=== PATIENT | male | born 1935 | race Caucasian/White ===

== ENCOUNTER → 2021-05-18 | Outpatient (CLI) | payer OTHER, BC | LOC: RAD 13:37 | PROVIDERS: ATTEND Internal Medicine | DX: R06.00 Dyspnea, unspecified (principal); M85.88 Other specified disorders of bone density and structure, other site ==

== ENCOUNTER → 2021-08-02 | Outpatient (CLI) | payer OTHER, BC ==
[~2021-08-02] VITALS: Ht 177.8 cm; Wt 64.0 kg
[~2021-08-02] MED LIST: CARDIZEM CD 18180 M3 PO; DIGOX125 MCG PO; GARLIC OIL1000 MG PO; IRON325 M1 PO; LASIX 40 MG TAB40 MG PO; LIPITOR40 MG PO; LO-DOSE ASPIRIN81 M1 PO; MIRALAX17 G1 PO; OMEGA 3 1,0001 EACH PO; OXYBUTYNIN CHLO10 MG PO; PROAIR HFA8.5 GM INH; TOPROL XL25 MG PO; TRELEGY ELLIPT1 EACH PO; VENTOLIN HFA INH8 GM PO; XARELTO20 MG PO
[2021-08-02 10:26] VITALS: BP 127/67
[2021-08-02 13:52] LABS: HEMOGLOBIN 11.3 gm/dL (14.0-18.0); MCH 30.2 pg (26.0-34.0); MCHC 33.3 g/dL (28.0-37.0); MCV 90.5 fL (80.0-100.0); RBC 3.76 mil/uL (4.50-6.00); RDW 14.5 % (10.5-14.5); WBC 4.7 thou/uL (4.0-11.0)
[2021-08-02 14:02] LABS: CALCIUM 9.7 mg/dL (8.5-10.1); CREATININE 1.1 mg/dL (0.7-1.3)
--- NOTE | 2021-08-02 14:29 | NUR ---
ATTEMPTED THE MEDIASTINAL MASS BIOPSY HOWEVER ON THE PRELIMINARY CT SCAN, WE FOUND THE MASS HAD SHIFTED AND BILAT LUNGS WERE NOW SITTING ANTERIOR TO THE MASS. NOTIFIED AND REVIEWED THE IMAGES, OSMEL GARBER SPOKE WITH DR. PRASAD AND IT WAS DETERMINED THAT THE RISKS OF GOING THROUGH THE LUNG TO REACH THE MASS WAS TOO RISKY FOR THE BENEFIT OF OBTAINING THE SAMPLES. PT AND SPOUSE NOTIFIED OF THE SITUATION AND ARE OK WITH NOT DOING THE PROCEDURE AND FOLLOWING UP WITH DR. PRASAD FOR AN ALTERNATIVE TREATMENT PLAN. PT DISCHARGED HOME TO FOLLOW UP WITH DR. PRASAD.
== END ==
LOC: CAT 09:32
PROVIDERS: Radiology Vascular & Interventional Radiology; ATTEND Internal Medicine
DX: J90 Pleural effusion, not elsewhere classified (principal); J43.9 Emphysema, unspecified